=== PATIENT | male | born 1995 | race Caucasian/White ===

== ENCOUNTER 2016-11-15 12:28 | Emergency (ER) | payer OTHER ==
[~2016-11-15] VITALS: Ht 185.4 cm; Wt 119.5 kg
[~2016-11-15 12:28] MED LIST: IBUP-1542 PO
[2016-11-15 12:42] VITALS: Ht 185.4 cm; Wt 119.5 kg
[2016-11-15] MEDS ORDERED: IBUPROFEN 800 MG TAB PO ONE (14:00)
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
[2016-11-15] MEDS ORDERED: NAPR-260 PO (14:58)
[2016-11-15] MEDS ORDERED: ACET500C5 PO (14:58)
[2016-11-15 15:08] VITALS: BP 115/75; PULSE 75; RESP 18; TEMP 98.3
== END 2016-11-15 15:11 | disposition home or self-care (01) ==
LOC: FTE 12:28
DX: S39.92XA Unspecified injury of lower back, initial encounter (principal); V49.40XA Driver injured in collision with unspecified motor vehicles in traffic accident, initial encounter; Z87.891 Personal history of nicotine dependence
CPT/HCPCS: 72100; Z7610